=== PATIENT | female | born 1950 | race Caucasian/White ===

== ENCOUNTER 2024-02-27 02:52 | Observation (INO) | payer MEDICARE, SELFPAY ==
[2024-02-27] VITALS (7 sets, daily range): BP systolic 99–136; BP diastolic 64–79; PULSE 74–97; RESP 16–20; TEMP 36.1–36.8; O2SAT 94–97; BMI 25.8; BMI 25.9
--- NOTE | 2024-02-27 03:51 | CRLHL7_ITS ---
For Patients: As a result of the Century Cures Act, medical imaging exams and procedure reports are released immediately into your electronic medical record. You may view this report before your referring provider. If you have questions, please contact your health care provider. INDICATION: Abdominal pain for 1 month. COMPARISON: None. TECHNIQUE: CT of the abdomen and pelvis with intravenous contrast. Multiplanar axial, coronal, and sagittal reformats were reconstructed. Contrast: 76 mL Isovue 370. FINDINGS: Lung bases: Normal. Liver: Normal. No mass. Gallbladder and bile ducts: Cholecystectomy. Moderate intrahepatic biliary ductal dilatation extending out to the periphery. Mild right-sided intrahepatic biliary ductal dilatation. The extrahepatic bile duct is diffusely dilated. The common bile duct measures 1.3 cm. The distal common bile duct measures 0.5 cm. There loss of the normal tapering down towards the ampulla. No discrete filling defect or obstructing mass is identified on this exam. Pancreas: Normal pancreatic parenchyma. The pancreatic duct is not dilated. Spleen: Normal. Adrenal glands: Normal. Kidneys: Normal parenchyma. No cyst or solid mass. No calculi. No urinary tract dilation. Urinary bladder: Normal. Pelvis: No cyst or mass. Vessels: Atherosclerotic vascular calcifications. No aortic aneurysm. Mesenteric vessels are widely patent. Bowel: Focally inflamed diverticulum in the proximal sigmoid colon in the anterior left lower quadrant/pelvis. Adjacent inflammatory stranding. No phlegmon or abscess. No focal or free air. No other dilated or inflamed appearing bowel. Overall the diverticular burden is heavy. The appendix is not seen. Moderate stool burden. Lymph nodes: No adenopathy. Peritoneum: No ascites. Abdominal wall: Tiny fat containing right inguinal hernia. Bones: No fractures. No focal worrisome bone lesions. IMPRESSION: 1. Acute uncomplicated sigmoid diverticulitis. 2. Left intrahepatic and extrahepatic biliary ductal dilatation may be related to reservoir effect. No specific further imaging is recommended without signs/symptoms of obstructive biliary pathology Please note that all CT scans at this facility use dose modulation, iterative reconstruction, and/or weight-based dosing when appropriate to reduce radiation dose to as low as reasonably achievable. Dictated by Jerica Power MD @ 02/27/2024 5:05:07 AM (Electronically Signed)
[2024-02-27 03:52] LABS: Basophils Absolute Auto 0.01 K/uL (0.00-0.30); Basophils Percent Auto 0.1 % (0.0-3.0); Eosinophils Absolute Auto 0.02 K/uL (0.00-0.50); Eosinophils Percent Auto 0.2 % (0.0-7.0); Hemoglobin* 12.8 gm/dL (12.0-16.0); Immature Granulocytes Abs Auto 0.01 K/uL (0.00-0.30); Immature Granulocytes Pct Auto 0.1 %; Lymphocytes Percent Auto 13.5 % (20-44); Mean Corpuscular HGB Conc 33 gm/dL (32-36); Mean Corpuscular Hemoglobin 31 pg (26-34); Mean Corpuscular Volume 94 fL (80-100); Monocytes Percent Auto 9.8 % (0.0-11.0); Neutrophils Percent Auto 76.3 % (42.0-72.0); Platelet Count* 567 K/uL (140-440); RDW Coefficient of Variation % 12.7 % (11.5-15.5); Red Blood Count 4.17 m/uL (4.00-5.20); White Blood Count* 9.88 K/uL (4.50-11.00)
--- NOTE | 2024-02-27 03:53 | ED_ITS ---
HPI - Abdominal Pain General Date Seen: 02/27/24 Chief Complaint: Abdominal Pain Stated Complaint: stomach pain Time Seen by Provider: 02/27/24 02:56 Source: patient and family Mode of arrival: ambulatory Limitations: no limitations History of Present Illness HPI narrative: Patient is a 73-year-old female who comes in with lower abdominal pain for the past two weeks. This has gotten much worse over the past 48 hours. The left side is worse than the right. She has a history of diverticulitis and this feels similar. No fevers or chills. Eating makes the pain worse. She denies diarrhea or constipation. No black or bloody stools. No weight loss. She has had previous appendectomy and cholecystectomy. She does not have a local doctor and does not have any chronic medical conditions. She does not take any medications. She comes in at 3:00 a.m. because pain was keeping her from sleeping. Related Data Home Medications ?Medication ?Instructions ?Recorded ?Confirmed No Known Home Medications 02/27/24 02/27/24 Allergies Allergy/AdvReac Type Severity Reaction Status Date / Time No Known Drug Allergies Allergy Verified 02/27/24 03:04 Review of Systems Narrative Review of systems is as outlined above otherwise noted to be negative. [facility] Surgical History (Updated 02/27/24 @ 04:02 by Boston Olivo MD) History of appendectomy ?Z90.49 - Acquired absence of other specified parts of digestive tract (ICD- 10) History of cholecystectomy ?Z90.49 - Acquired absence of other specified parts of digestive tract (ICD- 10) Social History (Updated 02/27/24 @ 04:02 by Boston Olivo MD) Narrative: , retired, nonsmoker How often do you have a drink containing alcohol: never AUDIT-C Alcohol total score: 0 Non-prescribed substance use: denies use Exam Narrative: Exam Narrative: Vitals noted. HEENT: Conjunctiva clear. Tympanic membranes are pearly white bilaterally. Posterior pharynx is clear without erythema or exudate. Neck is supple without adenopathy, thyromegaly, carotid bruit. Lungs: Clear to auscultation in all velazquez. No wheezes, rales, rhonchi. Heart: Regular rate and rhythm without murmur. Abdomen: Soft with diffuse tenderness. This is worst in the left lower quadrant. No guarding or rebound. No palpable masses. Bowel sounds are normal. No CVA tenderness. Extremities: No cyanosis or edema. Good distal pulses. Skin: No abnormalities noted of the exposed skin. Neurologic: Awake, alert, fully oriented. Neurologic exam is nonfocal. Const: Vital Signs, click to edit/add: Vital Signs - 24 hr 02/27/24 03:04 02/27/24 07:24 Temperature 97.1 F L Pulse Rate [Pulse Oximeter] 97 75 Respiratory Rate 20 16 Blood Pressure [Ri ght Upper Arm] 99/66 122/67 Pulse Oximetry 94 96 Oxygen Delivery Me thod Room Air Room Air Course Course ED Course: Patient seen and examined. Labs and CT of her abdomen and pelvis with IV contrast are ordered. Reevaluation(s) Reevaluation #1: CBC is unremarkable. Basic metabolic panel is also essentially normal. Liver function tests are abnormal with a total bilirubin of 2.5 and direct of 1.5. Alk-phos is 198. AST weight is 1007, ALT is 522. Lipase is 17,048. Patient confirms that she does not drink any alcohol. She has never been told she has hyperlipidemia. She takes no prescription medications. She has had a previous cholecystectomy. Her CT scan shows simple uncomplicated diverticulitis with no sign of liver or pancreas disease. Because her imaging and her clinical scenario did not seem to manage with her tremendously elevated labs I chose to repeat her AST, ALT, lipase. Reevaluation #2: Follow-up AST has risen to 1215, ALT 714. Lipase is 26,530. She is given a L of normal saline. She continues to have abdominal pain but has not gotten any worse. I discussed the case with Dr. Matthew. A CPK, troponin, blood culture will be added. She is given Flagyl 500 mg IV and Rocephin 1 g IV. EKG shows normal sinus rhythm with a rate of 74. No acute ST or T-wave changes. He agrees to admit the patient to the hospital. Vital Signs Vital signs: Initial Vital Signs Temperature 97.1 F L 02/27/24 03:04 Temperature Source Temporal Artery Scan 02/27/24 03:04 Pulse Rate 97 02/27/24 03:04 Pulse Rhythm Regular 02/27/24 03:04 Pulse Strength 3+ Normal 02/27/24 03:04 Respiratory Rate 20 02/27/24 03:04 Blood Pressure 99/66 02/27/24 03:04 Blood Pressure Mean 77 02/27/24 03:04 Blood Pressure Position Sitting 02/27/24 03:04 Pulse Oximetry 94 02/27/24 03:04 Oxygen Delivery Method Room Air 02/27/24 03:04 Vital Signs Temperature 97.1 F L 02/27/24 03:04 Pulse Rate 97 02/27/24 03:04 Respiratory Rate 20 02/27/24 03:04 Blood Pressure 99/66 02/27/24 03:04 Pulse Oximetry 94 02/27/24 03:04 Oxygen Delivery Method Room Air 02/27/24 03:04 Temperature 97.1 F L 02/27/24 03:04 Pulse Rate 75 02/27/24 07:24 Respiratory Rate 16 02/27/24 07:24 Blood Pressure 122/67 02/27/24 07:24 Pulse Oximetry 96 02/27/24 07:24 Oxygen Delivery Method Room Air 02/27/24 07:24 Medications Administered Medications: Discontinued Medications Generic Name Dose Route Start Last Admin Trade Name Freq PRN Reason Stop Dose Admin Sodium Chloride 1,000 mls @ 1,000 mls/hr 02/27/24 06:09 02/27/24 06:28 0.9 % Sodium Chloride 1000 Ml IV 02/27/24 07:08 1,000 mls/hr .Q1H UMA Administration MDM - Abdominal Pain Lab Data Labs: Lab Results 02/27/24 02/27/24 02/27/24 Range/Units 03:25 03:30 05:18 WBC 9.88 (4.50-11.00) K/uL RBC 4.17 (4.00-5.20) m/uL Hgb 12.8 (12.0-16.0) gm/dL Hct 39.0 (33.0-51.0) % MCV 94 (80-100) fL MCH 31 (26-34) pg MCHC 33 (32-36) gm/dL RDW Coeff of Jimmie 12.7 (11.5-15.5) % Plt Count 567 H (140-440) K/uL Neut % (Auto) 76.3 H (42.0-72.0) % Lymph % (Auto) 13.5 L (20-44) % Nicollet % (Auto) 9.8 (0.0-11.0) % Eos % (Auto) 0.2 (0.0-7.0) % Baso % (Auto) 0.1 (0.0-3.0) % Neut # (Auto) 7.50 H (1.7-7.0) K/uL Lymph # (Auto) 1.30 (0.90-2.90) K/uL Nicollet # (Auto) 1.00 H (0.00-0.90) K/UL Eos # (Auto) 0.02 (0.00-0.50) K/uL Baso # (Auto) 0.01 (0.00-0.30) K/uL Abs Immat Gran (auto) 0.01 (0.00-0.30) K/uL Imm/Tot Granulo (auto) 0.1 % Sodium Cancelled 134 L Potassium Cancelled 3.7 Chloride Cancelled 102 Carbon Dioxide Cancelled 26 Anion Gap Cancelled 6 L BUN Cancelled 15 Creatinine Cancelled 0.8 Estimated Creat Clear Cancelled 46.43 Estimated GFR Cancelled 79 Glucose Cancelled 138 H Calcium Cancelled 9.3 Total Bilirubin Cancelled 2.5 H Direct Bilirubin 1.5 H (0.0-0.5) mg/dL AST Cancelled 1007 H 1215 H ALT Cancelled 522 H 714 H Alkaline Phosphatase Cancelled 198 H Total Protein Cancelled 7.5 Albumin Cancelled 4.2 Lipase 66290 H 94281 H (23-300) U/L Lab Acknowledgement 02/27/24 Range/Units 07:19 WBC (4.50-11.00) K/uL RBC (4.00-5.20) m/uL Hgb (12.0-16.0) gm/dL Hct (33.0-51.0) % MCV (80-100) fL MCH (26-34) pg MCHC (32-36) gm/dL RDW Coeff of Jimmie (11.5-15.5) % Plt Count (140-440) K/uL Neut % (Auto) (42.0-72.0) % Lymph % (Auto) (20-44) % Nicollet % (Auto) (0.0-11.0) % Eos % (Auto) (0.0-7.0) % Baso % (Auto) (0.0-3.0) % Neut # (Auto) (1.7-7.0) K/uL Lymph # (Auto) (0.90-2.90) K/uL Nicollet # (Auto) (0.00-0.90) K/UL Eos # (Auto) (0.00-0.50) K/uL Baso # (Auto) (0.00-0.30) K/uL Abs Immat Gran (auto) (0.00-0.30) K/uL Imm/Tot Granulo (auto) % Sodium Potassium Chloride Carbon Dioxide Anion Gap BUN Creatinine Estimated Creat Clear Estimated GFR Glucose Calcium Total Bilirubin Direct Bilirubin (0.0-0.5) mg/dL AST ALT Alkaline Phosphatase Total Protein Albumin Lipase (23-300) U/L Lab Acknowledgement Test Added Discharge Plan Discharge Clinical Impression: Diverticulitis, Elevated liver function tests, Elevated lipase Patient Disposition: Admitted As Inpatient Condition: Stable
[2024-02-27 03:54] LABS: Slide Review Reflex No
[2024-02-27 04:04] LABS: Albumin* 4.2 g/dL (3.3-5.0); Chloride* 102 mmol/L (96-114); Sodium* 134 mmol/L (135-149)
[2024-02-27 04:05] LABS: Potassium* 3.7 mmol/L (3.6-5.1)
[2024-02-27 04:07] LABS: Alkaline Phosphatase* 198 U/L (40-150); Anion Gap 6 mEq/L (7-15); Bilirubin Direct* 1.5 mg/dL (0.0-0.5); Bilirubin Total* 2.5 mg/dL (0.1-1.5); Blood Urea Nitrogen* 15 mg/dL (7-30); Calcium* 9.3 mg/dL (8.4-10.6); Carbon Dioxide* 26 mmol/L (20-32); Creatinine* 0.8 mg/dL (0.5-1.5); Est. Creatinine Clearance* 46.43; Estimated Glomerular Filt Rate 79 ml/min; Glucose* 138 mg/dL (60-115); Total Protein* 7.5 g/dL (6.0-8.3)
[2024-02-27 04:08] LABS: Alanine Aminotransferase* 522 U/L (4-35)
[2024-02-27 04:14] LABS: Aspartate Amino Transferase* 1007 U/L (12-35)
[2024-02-27 04:34] LABS: Lipase* 17048 U/L (23-300)
[2024-02-27 05:40] LABS: Alanine Aminotransferase* 714 U/L (4-35)
[2024-02-27 05:47] LABS: Aspartate Amino Transferase* 1215 U/L (12-35)
[2024-02-27] MEDS: 0.9 % SODIUM CHLORIDE 1000 ml 1,000 ML IV (06:28)
[2024-02-27 06:30] LABS: Lipase* 26530 U/L (23-300)
[2024-02-27] MEDS: cefTRIAXone 1 GM in 0.9 % SODIUM CHLORIDE Mini-bag 100 ML IVPB (07:40)
[2024-02-27 07:48] LABS: Creatine Kinase* 40 U/L (41-117)
[2024-02-27 08:07] LABS: Troponin I* < 0.01 ng/mL (0.01-0.04)
[2024-02-27] MEDS: metroNIDAZOLE 500 MG/100 ML PIGGYBACK 100 MG IVPB ×2 (08:10→16:08)
--- NOTE | 2024-02-27 08:26 | CRLHL7_ITS ---
For Patients: As a result of the Century Cures Act, medical imaging exams and procedure reports are released immediately into your electronic medical record. You may view this report before your referring provider. If you have questions, please contact your health care provider. INDICATION: Evaluate pancreas, question Budd-Chiari TECHNIQUE: Ultrasound abdomen limited. Sonographic images of the right upper quadrant were obtained using marie-scale and color Doppler images. Doppler images of the hepatic vasculature were obtained. COMPARISON: CT abdomen pelvis 02/27/2024 FINDINGS: Liver: Normal in size and echotexture. No suspicious masses. Mild intrahepatic biliary ductal dilation. Hepatic vasculature: Patent portal veins with hepatopetal flow. Pulsatile flow in the left portal vein. Hepatic veins are patent. Proper hepatic artery with normal waveform and peak systolic velocity of 21.5 centimeters/second. Gallbladder: Absent. Common bile duct: Dilated common bile duct measuring up to 1.3 centimeters at the level of the pancreatic head, without evidence of choledocholithiasis. Pancreas: Pancreatic tail is poorly visualized due to bowel-gas. Remainder the pancreas is unremarkable. Spleen: Antegrade flow in the splenic vein. Right kidney: Normal in size. Normal echotexture and cortex. No suspicious masses, stones, or hydronephrosis. Vasculature: Proximal abdominal aorta and IVC are unremarkable. IMPRESSION: Normal appearance of the visualized pancreas. Dilated common bile duct measuring up to 1.3 centimeters without evidence of choledocholithiasis. This may be related to reservoir effect from cholecystectomy. However, with the presence of elevated LFTs, further evaluation with MRCP can be considered. Normal appearance of the liver. There is mildly pulsatile flow in the left portal vein, which is nonspecific, and is likely a normal variant considering normal waveforms in the remainder of the portal veins. Remainder of the hepatic vasculature evaluation is unremarkable. Dictated by Tess Hinojosa MD @ 02/28/2024 8:44:52 AM (Electronically Signed)
--- NOTE | 2024-02-27 08:26 | CRLHL7_ITS ---
For Patients: As a result of the Cures Act, medical imaging exams and procedure reports are released immediately into your electronic medical record. You may view this report before your referring provider. If you have questions, please contact your health care provider. Indication: Cough, smoker, lipase 27,000 Technique: Volumetric multidetector CT images of the chest were obtained without the administration of IV contrast. Comparison: None available. Findings: The thoracic inlet and thyroid gland are unremarkable. The thoracic aorta is nonaneurysmal. There is no mediastinal, hilar or axillary adenopathy. There are calcified mediastinal and hilar lymph nodes. There is mild bronchial thickening with trace mucoid impaction of lower lobe bronchi. There is mild pleural thickening with basilar atelectasis and parenchymal scar. There is minimal emphysematous changes of the upper greater than lower lobes. There is no dense consolidation, effusion or pneumothorax. There is no evidence of pulmonary mass or suspicious pulmonary nodule. The partially visualized upper abdominal viscera are within normal limits. The thoracic vertebral body heights are grossly maintained with minimal endplate Schmorl`s defects. There is moderate degenerative disc disease. There is no significant spondylolisthesis or displaced fracture. Impression: Moderate emphysematous changes of the upper lobes with mild central bronchial thickening and trace mucoid impaction of lower lobe bronchi. No dense consolidation or acute cardiopulmonary abnormality. Please note that all CT scans at this facility use dose modulation, iterative reconstruction, and/or weight-based dosing when appropriate to reduce radiation dose to as low as reasonably achievable. Dictated by Ajith Condon MD @ 02/27/2024 9:05:12 AM (Electronically Signed)
[2024-02-27 08:50] LABS: Gamma Glutamyl Transpeptidase* 210 U/L (8-55)
[2024-02-27 09:03] LABS: HCO3 VBG 26 mmol/L (21-28); Lactate* 0.5 mmol/L (0.5-1.9); PCO2 VBG 42 mmHG (40-50); PO2 VBG 36.2 mmHG (25-47)
[2024-02-27] MEDS: 0.9 % SODIUM CHLORIDE 1000 ml 1,000 ML 75 ML IV (10:05)
--- NOTE | 2024-02-27 11:58 | PM.IMHP1 ---
Hospitalist- H&P: HPI History of Present Illness Date Seen: 02/27/24 Chief complaint: stomach pain Narrative: Marbella Diallo is a 73 year old Woman presents to our emergency department for further assessment of worsening abdominal pain. Has had intermittent left lower quadrant abdominal discomfort for the past couple of weeks. Discomfort has increased over the last 48 hours. At times the pain seems to shoot into the right side of the abdomen as well. Feels like diverticulitis that she has had in the past. Denies fevers, rigors, diaphoresis. At times it seems like eating makes the pain worse , particularly lately. Although she does have constipation off and on, has not had diarrhea or constipation recently. Has not had any blood loss of any sort including no hematemesis, hematochezia, melena, hematuria. Denies hemoptysis. Denies recent trauma or injury or travel. Denies nausea or vomiting. She denies chest heaviness, pressure, tightness, or pain. She denies syncope or near-syncope. She denies palpitations or chest fluttering. She denies edema. Review of Systems Status of ROS: Reports: 10 or more systems reviewed and unremarkable except as noted in History and below Narrative: Chronic cough, nonproductive. Acknowledges a sense of dyspnea on exertion which has been evolving over the last several years. Continues to smoke tobacco daily, 1/2 pack per day. Has been smoking for over 50 years. Denies the use of alcohol or any other prescription or street or recreational drugs. Tells me she has not seen a physician for literally decades since her primary care physician, Dr. Titus, retired a number of years ago. She believes Dr. Titus worked with [facility]. Dr. Titus delivered her children. Lives with her , Francisco. Designates Francisco as her power of tax attorney for health should that be required. Unequivocally requests DNR DNI resuscitation status in the event of cardiopulmonary demise. Denies taking any [id number] medications including acetaminophen and ibuprofen. [facility] Medical History Tobacco use disorder ?F17.200 - Nicotine dependence, unspecified, uncomplicated (ICD-10) History of lipoma ?Z86.018 - Personal history of other benign neoplasm (ICD-10) Surgical History History of section ?Z98.891 - History of uterine scar from previous surgery (ICD-10) History of appendectomy ?Z90.49 - Acquired absence of other specified parts of digestive tract (ICD-10) History of cholecystectomy ?Z90.49 - Acquired absence of other specified parts of digestive tract (ICD-10) Family History Father Alcohol dependence Pancreatic cancer Mother Lung cancer Social History Narrative: , lives with , retired, life-long smoker What is your current living situation?: I presently have a place to live Problems where you live: no known problems Problems where you live details: NA In the past 12 months, utilities in danger of being shut off: no In past 12 months, lack of transportation kept you from medical appts, meetings, work, or getting things needed for daily living: no In the past 12 mos, have been you worried that your food would run out before you had money to buy more?: never true In the past 12 mos, the food you bought just didn't last and you didn't have money to buy more?: never true Smoking Status: Current every day smoker What tobacco products do you use: cigarettes Smoking packs per day: 0.5 Smoking cigarettes per day: 10.0 Years smoked: 25 Smoking pack-years: 12.50 How often do you have a drink containing alcohol: never AUDIT-C Alcohol total score: 0 Non-prescribed substance use: denies use How often does anyone, including family, friends and others, physically hurt you: never How often does anyone, including family, friends and others, insult or talk down to you: never How often does anyone, including family, friends and others, threaten you with harm: never How often does anyone, including family, friends and others, scream or curse at you: never service: No Meds Home Medications and Allergies Home Medications ?Medication ?Instructions ?Recorded ?Confirmed ?Type No Known Home Medications 02/27/24 02/27/24 History Allergies Allergy/AdvReac Type Severity Reaction Status Date / Time No Known Drug Allergies Allergy Verified 02/27/24 03:04 Exam Narrative: Exam Narrative: I initially examined the patient in the emergency department. Subsequently I reexamined the patient in her hospital room. Appears comfortable no acute distress. Vision and hearing are adequate. Alert and oriented x4. Friendly and cooperative. External auditory canal and tympanic membranes appear normal with minimal cerumen. Midline nasal septum with normal nasal mucosa. Upper dentures with lower dentition in fair repair. Oropharynx benign. Conjugate gaze. Pupils equally round and reactive to light and accommodation. Head and neck lymphadenopathy is negative. Neck is supple. Midline trachea. No JVD or hepatojugular reflux. Lungs with some fine end inspiratory rales bibasilarly, scattered rhonchi that clear with cough, no wheezing. Prolonged expiratory phase. No CVA tenderness to thumping. Regular heart rate and rhythm. Normal S1-S2. PMI not laterally displaced. Abdomen with active bowel sounds, soft, with subjective discomfort to palpation in left lower quadrant otherwise abdomen is benign. No rebound or guarding. No organomegaly or masses. Extremities without edema. Palpable pulses upper and lower extremities. No focal motor neurologic deficits. Independent in transfer, station, and gait. Skin is dry and intact. No icterus or jaundice. No petechiae or rashes. In addition to the labs listed below, initial lipase was 17,000 and subsequent recheck was 26,000. Const: Vital Signs, click to edit/add: Vital Signs - 24 hr 02/27/24 03:04 02/27/24 07:24 02/27/24 09:29 Temperature 97.1 F L 97 F L Pulse Rate [Pulse Oximeter] 97 75 74 Respiratory Rate 20 16 16 Blood Pressure [Ri ght Arm] 127/79 Blood Pressure [Ri ght Upper Arm] 99/66 122/67 Pulse Oximetry 94 96 97 Oxygen Delivery Me thod Room Air Room Air Room Air 02/27/24 09:29 02/27/24 11:41 Temperature 97.6 F Pulse Rate [Pulse Oximeter] 75 Respiratory Rate 16 16 Blood Pressure [Ri ght Arm] 127/64 Blood Pressure [Ri ght Upper Arm] Pulse Oximetry 97 94 Oxygen Delivery Me thod Room Air Room Air Hospitalist - H&P: Result Labs Labs: Short CBC 02/27/24 Range/Units 03:25 WBC 9.88 (4.50-11.00) K/uL Hgb 12.8 (12.0-16.0) gm/dL Hct 39.0 (33.0-51.0) % Plt Count 567 H (140-440) K/uL BMP 02/27/24 02/27/24 03:25 03:30 Sodium Cancelled 134 L Potassium Cancelled 3.7 Chloride Cancelled 102 Carbon Dioxide Cancelled 26 BUN Cancelled 15 Creatinine Cancelled 0.8 Glucose Cancelled 138 H Calcium Cancelled 9.3 Cardiac Enzymes 02/27/24 Range/Units 05:18 Total Creatine Kinase 40 L (41-117) U/L Troponin I < 0.01 L (0.01-0.04) ng/mL Liver Function 02/27/24 02/27/24 02/27/24 Range/Units 03:25 03:30 05:18 Total Bilirubin Cancelled 2.5 H Direct Bilirubin 1.5 H (0.0-0.5) mg/dL GGT 210 H (8-55) U/L AST Cancelled 1007 H 1215 H ALT Cancelled 522 H 714 H Alkaline Phosphatase Cancelled 198 H Albumin Cancelled 4.2 ECG ECG interpretation date: 02/27/24 Interpretation: Normal sinus rhythm without evidence of infarct or ischemia. Low voltage consistent with underlying pulmonary disease. Imaging CT scan - abdomen and pelvis: Radiologist's impression: 1. Acute uncomplicated sigmoid diverticulitis. 2. Left intrahepatic and extrahepatic biliary ductal dilatation may be related to reservoir effect. No specific further imaging is recommended without signs/symptoms of obstructive biliary pathology CT scan - chest: Radiologist's impression: Moderate emphysematous changes of the upper lobes with mild central bronchial thickening and trace mucoid impaction of lower lobe bronchi. No dense consolidation or acute cardiopulmonary abnormality. Assessment and Plan Assessment and plan (1) Diverticulitis: Problem comment: - admit for observation given incongruity of laboratory findings, imaging tests, and clinical presentation - IV ceftriaxone and metronidazole for now - NPO for now and obtain ultrasound to further assess pancreas as well as Doppler study to further assess for possibility of a Budd-Chiari syndrome - IV fluids while NPO Status: Acute (2) Elevated liver function tests: Problem comment: - 02/27/2024: AST elevated at 1000 and later repeat value of 1200. ALT elevated at 500, repeat value at 700. - etiology of this transaminasemia not yet determined: Differential diagnosis include acute viral hepatitis, other viral infection, acetaminophen toxicity, Budd-Chiari syndrome, malignant infiltrative process such as breast cancer or squamous cell lung cancer or melanoma or lymphoma, underlying muscle disorder, underlying thyroid disorder, etc. - check ultrasound with Doppler studies for possible Budd-Chiari syndrome, CT scan of chest, GGT, CK, troponin I, TSH, acute viral hepatitis serologies, and consider additional studies as warranted. - monitor Status: Acute (3) Elevated lipase: Problem comment: - 02/27/2024: Lipase 17,000 on presentation and later recheck to and found to be 26,000. Etiology of this uncertain. CT scan of abdomen and pelvis demonstrates normal appearing pancreas. Differential diagnosis include pancreatic disease, non pancreatic disease including the possibility of the acute diverticulitis in part causing this abnormality. - monitor. Check abdominal ultrasound. Status: Acute (4) Tobacco use disorder: Problem comment: - 1/2 PPD for over 50 years Status: Acute (5) Emphysema lung: Problem comment: - CT scan of chest 02/27/2024: Moderate emphysematous changes of the upper lobes with mild central bronchial thickening and trace mucoid impaction of lower lobe bronchi. No dense consolidation or acute cardiopulmonary abnormality. - not taking any medication for this Status: Acute Plan 1. Reviewed impression with patient 2. Reviewed recommendations with patient 3. Answered patient's questions are satisfaction. 4. Declines smoking cessation 5. Agrees to above plans and recommendations Total Time Spent Total Time Spent: 70 minutes
[2024-02-27 12:31] LABS: Albumin* 3.8 g/dL (3.3-5.0)
[2024-02-27 12:34] LABS: Alkaline Phosphatase* 214 U/L (40-150); Bilirubin Direct* 0.5 mg/dL (0.0-0.5); Bilirubin Total* 1.2 mg/dL (0.1-1.5); Total Protein* 6.8 g/dL (6.0-8.3)
[2024-02-27 12:48] LABS: Aspartate Amino Transferase* 927 U/L (12-35)
[2024-02-27 13:01] LABS: Alanine Aminotransferase* 841 U/L (4-35); Lipase* 5195 U/L (23-300)
[2024-02-27 13:52] LABS: Acetaminophen* < 10.0 ug/mL (10.0-30.0)
--- NOTE | 2024-02-27 14:49 | PC.NURSE ---
End of shift: Pt arrived from the ER at 0825. She is A&O, afebrile and VSS. When asked, pt reports her abd pain is much better than before rating it at 2/10. She's refused any interventions for pain since arriving. Pt has been independent in her room with a steady gait. Continent of B&B, no BM since arrival. PIV in left AC infusing NaCl @ 75 mL/hr. IV Flagyl scheduled q8H and IV Rocephin scheduled q24H. Abd ultrasound completed at bedside this morning, results still pending. Pt is NPO and dissatisfied with diet order, requiring re-education on reasons why she needs the bowel rest.
--- NOTE | 2024-02-27 19:16 | PC.NURSE ---
End of Shift Note: Patient has not complain of any pain. Only states she is hungry. explain to her that she is npo and needs to rest her bowel. Did give her a 1/2 cup of ice chips. Otherwise have only taken care of her for 4 hours. will give report to next shift.
[2024-02-28] MEDS: 0.9 % SODIUM CHLORIDE 1000 ml 1,000 ML 75 ML IV (00:05)
[2024-02-28] MEDS: metroNIDAZOLE 500 MG/100 ML PIGGYBACK 100 MG IVPB ×2 (00:05→08:17)
[2024-02-28 04:20] VITALS: BP 122/66; PULSE 89; RESP 18; TEMP 37; O2SAT 93
--- NOTE | 2024-02-28 04:31 | PC.NURSE ---
Shift note: Lower abdominal pain 2-3/10 reported only with cough or sneezing, no pain at rest or while walking. No c/o nausea, bowel sounds hypoactive. She is voiding, is independent in the room
[2024-02-28 06:14] LABS: Basophils Absolute Auto 0.01 K/uL (0.00-0.30); Basophils Percent Auto 0.1 % (0.0-3.0); Eosinophils Absolute Auto 0.04 K/uL (0.00-0.50); Eosinophils Percent Auto 0.5 % (0.0-7.0); Hemoglobin* 11.4 gm/dL (12.0-16.0); Lymphocytes Absolute Auto 1.77 K/uL (0.90-2.90); Lymphocytes Percent Auto 21.1 % (20-44); Mean Corpuscular HGB Conc 33 gm/dL (32-36); Mean Corpuscular Hemoglobin 31 pg (26-34); Mean Corpuscular Volume 95 fL (80-100); Monocytes Percent Auto 8.4 % (0.0-11.0); Neutrophils Absolute Auto 5.86 K/uL (1.7-7.0); Neutrophils Percent Auto 69.9 % (42.0-72.0); Platelet Count* 505 K/uL (140-440); RDW Coefficient of Variation % 12.7 % (11.5-15.5); Red Blood Count 3.68 m/uL (4.00-5.20); White Blood Count* 8.38 K/uL (4.50-11.00)
[2024-02-28 06:42] LABS: Slide Review Reflex No
[2024-02-28 06:47] LABS: Chloride* 108 mmol/L (96-114); Potassium* 3.7 mmol/L (3.6-5.1); Sodium* 136 mmol/L (135-149)
[2024-02-28 06:49] LABS: Creatinine* 0.7 mg/dL (0.5-1.5); Est. Creatinine Clearance* 46.43; Estimated Glomerular Filt Rate 92 ml/min; Lipase* 133 U/L (23-300)
[2024-02-28 06:50] LABS: Anion Gap 8 mEq/L (7-15); Blood Urea Nitrogen* 17 mg/dL (7-30); Carbon Dioxide* 20 mmol/L (20-32); Gamma Glutamyl Transpeptidase* 186 U/L (8-55); Glucose* 68 mg/dL (60-115)
[2024-02-28 06:51] LABS: Calcium* 8.6 mg/dL (8.4-10.6)
[2024-02-28 07:00] VITALS: BP 123/65; PULSE 88; RESP 18; TEMP 35.9; O2SAT 93
[2024-02-28 09:13] LABS: Alanine Aminotransferase* 524 U/L (4-35); Albumin* 3.5 g/dL (3.3-5.0); Alkaline Phosphatase* 193 U/L (40-150); Aspartate Amino Transferase* 316 U/L (12-35); Bilirubin Direct* 0.3 mg/dL (0.0-0.5); Bilirubin Total* 0.7 mg/dL (0.1-1.5); Total Protein* 6.5 g/dL (6.0-8.3)
[2024-02-28] MEDS: cefTRIAXone 2 GM in 0.9 % SODIUM CHLORIDE Mini-bag 100 ML IVPB (09:29)
[2024-02-28] MEDS: SODIUM CHLORIDE 0.9 % (FLUSH) 10 ML SYRINGE 5 ML IVF (09:50)
--- NOTE | 2024-02-28 12:50 | PC.NURSE ---
PT VSS. A&O. Tolerated a regular diet well. IV removed and intact. Amb. Ind. Pt discharged at 1220 via ambulation, accompanied by spouse. RN provided discharge instructions to patient. Discharge instructions signed by patient.
--- NOTE | 2024-02-28 16:36 | P.DS_ITS ---
DS: Providers Provider Date Seen: 02/28/24 Date of admission: 02/27/24 08:20 Primary care physician: Not a Local Provider Admitting Clinician: Emir Luque MD Attending Physician on discharge: Emir Luque MD Date of Discharge: 02/28/24 DS: Diagnosis Discharge Diagnosis (1) Diverticulitis: Status: Acute Problem details: - admit for observation given incongruity of laboratory findings, imaging tests, and clinical presentation - IV ceftriaxone and metronidazole while in hospital changed to Augmentin at time of discharge - CT scan of abdomen and pelvis on presentation demonstrated uncomplicated diverticulitis of the sigmoid colon with normal-appearing pancreas - ultrasound of the abdomen demonstrated normal appearing pancreas with no e vidence of Budd-Chiari syndrome - left lower quadrant abdominal pain much improved at time of discharge. Tolerating oral intake. Tolerating increased activity. (2) Elevated liver function tests: Status: Acute Problem details: - 02/27/2024: AST elevated at 1000 and later repeat value of 1200. ALT el evated at 500, repeat value at 700. - etiology of this transaminasemia not yet determined: Differential diagnosis include acute viral hepatitis, other viral infection, acetaminophen toxicity, Budd-Chiari syndrome, malignant infiltrative process such as breast cancer or squamous cell lung cancer or melanoma or lymphoma, underlying muscle disorder, underlying thyroid disorder, etc. - CT scan of abdomen and pelvis on presentation demonstrated uncomplicated diverticulitis of the sigmoid colon with normal-appearing pancreas - ultrasound of the abdomen demonstrated normal appearing pancreas with no evidence of Budd-Chiari syndrome - 02/28/2024: AST down to 316, ALT down to 524, alk phosphatase down to 193, normal total bilirubin and direct bilirubin. These findings suggest the acute diverticulitis most likely the cause of this rise and then subsequent resolution as we initiated treatment for the diverticulitis. Will need follow-up. (3) Elevated lipase: Status: Acute Problem details: - 02/27/2024: Lipase 17,000 on presentation and later recheck to and found to be 26,000. Etiology of this uncertain. CT scan of abdomen and pelvis demonstrates normal appearing pancreas. Differential diagnosis include pancreatic disease, non pancreatic disease including the possibility of the acute diverticulitis in part causing this abnormality. - CT scan of abdomen and pelvis on presentation demonstrated uncomplicated diverticulitis of the sigmoid colon with normal-appearing pancreas - ultrasound of the abdomen demonstrated normal appearing pancreas with no evidence of Budd-Chiari syndrome - 02/28/2024: Lipase down to 133. (4) Emphysema lung: Status: Acute Problem details: - CT scan of chest 02/27/2024: Moderate emphysematous changes of the upper lobes with mild central bronchial thickening and trace mucoid impaction of lower lobe bronchi. No dense consolidation or acute cardiopulmonary abnormality. - not taking any medication for this - advised on tobacco cessation and follow-up with primary care physician. (5) Tobacco use disorder: Status: Acute Problem details: - 1/2 PPD for over 50 years - advised on tobacco cessation. DS: Summary Hospital Course Hospital Course: Admission history of present illness: ?Marbella Diallo is a 73 year old Woman presents to our emergency department for further assessment of worsening abdominal pain. Has had intermittent left lower quadrant abdominal discomfort for the past couple of weeks. Discomfort has increased over the last 48 hours. At times the pain seems to shoot into the right side of the abdomen as well. Feels like diverticulitis that she has had in the past. Denies fevers, rigors, diaphoresis. At times it seems like eating makes the pain worse , particularly lately. Although she does have constipation off and on, has not had diarrhea or constipation recently. Has not had any blood loss of any sort including no hematemesis, hematochezia, melena, hematuria. Denies hemoptysis. Denies recent trauma or injury or travel. Denies nausea or vomiting. She denies chest heaviness, pressure, tightness, or pain. She denies syncope or near-syncope. She denies palpitations or chest fluttering. She denies edema.? See diagnosis above for patient improvement with interventions and management. Time Spent with Patient Time attestation: Total time spent providing and/or coordinating discharge services: Exam Narrative: Exam Narrative: Appears comfortable no acute distress. Vision and hearing are adequate. Alert and oriented x4. Friendly and cooperative. External auditory canal and tympanic membranes appear normal with minimal cerumen. Midline nasal septum with normal nasal mucosa. Upper dentures with lower dentition in fair repair. Oropharynx benign. Conjugate gaze. Pupils equally round and reactive to light and accommodation. Head and neck lymphadenopathy is negative. Neck is supple. Midline trachea. No JVD or hepatojugular reflux. Lungs with some fine end inspiratory rales bibasilarly, scattered rhonchi that clear with cough, no wheezing. Prolonged expiratory phase. No CVA tenderness to thumping. Regular heart rate and rhythm. Normal S1-S2. PMI not laterally displaced. Abdomen with active bowel sounds, soft, with minimal subjective discomfort to palpation in left lower quadrant otherwise abdomen is benign. No rebound or guarding. No organomegaly or masses. Extremities without edema. Palpable pulses upper and lower extremities. No focal motor neurologic deficits. Independent in transfer, station, and gait. Skin is dry and intact. No icterus or jaundice. No petechiae or rashes. Const: Vital Signs, click to edit/add: Vital Signs - 24 hr 02/27/24 19:00 02/27/24 23:00 02/27/24 23:00 Temperature 98.3 F Pulse Rate [Pulse Oximeter] 90 84 Respiratory Rate 20 20 20 Blood Pressure [Ri ght Arm] 125/67 Pulse Oximetry 95 95 Oxygen Delivery Me thod Room Air Room Air 02/27/24 23:00 02/28/24 04:20 02/28/24 07:00 Temperature 98.6 F Pulse Rate [Pulse Oximeter] 86 89 88 Respiratory Rate 18 18 18 Blood Pressure [Ri ght Arm] 122/66 Pulse Oximetry 94 93 Oxygen Delivery Me thod Room Air Room Air 02/28/24 07:00 02/28/24 07:00 Temperature 96.6 F L Pulse Rate [Pulse Oximeter] 88 Respiratory Rate 18 18 Blood Pressure [Ri ght Arm] 123/65 Pulse Oximetry 93 93 Oxygen Delivery Me thod Room Air Room Air DS: Data Data Completed and Pending Labs on day of discharge: Labs from last 24 hours 02/28/24 02/28/24 07:38 06:02 WBC 8.38 RBC 3.68 L Hgb 11.4 L Hct 35.0 MCV 95 MCH 31 MCHC 33 RDW Coeff of Jimmie 12.7 Plt Count 505 H Neut % (Auto) 69.9 Lymph % (Auto) 21.1 Rogers % (Auto) 8.4 Eos % (Auto) 0.5 Baso % (Auto) 0.1 Neut # (Auto) 5.86 Lymph # (Auto) 1.77 Rogers # (Auto) 0.70 Eos # (Auto) 0.04 Baso # (Auto) 0.01 Abs Immat Gran (auto) 0.00 Imm/Tot Granulo (auto) 0.0 Sodium 136 Potassium 3.7 Chloride 108 Carbon Dioxide 20 Anion Gap 8 BUN 17 Creatinine 0.7 Estimated Creat Clear 46.43 Estimated GFR 92 Glucose 68 Calcium 8.6 Total Bilirubin 0.7 Direct Bilirubin 0.3 GGT 186 H AST 316 H ALT 524 H Alkaline Phosphatase 193 H C-Reactive Protein 8.0 H Total Protein 6.5 Albumin 3.5 Lipase 133 Lab Acknowledgement Test Added Preliminary micro results at discharge 02/27/24 07:39 Blood Culture - Preliminary Blood NO GROWTH AFTER 24 HOURS Imaging US - abdomen: Radiologist's impression: Normal appearance of the visualized pancreas. Dilated common bile duct measuring up to 1.3 centimeters without evidence of choledocholithiasis. This may be related to reservoir effect from cholecystectomy. However, with the presence of elevated LFTs, further evaluation with MRCP can be considered. Normal appearance of the liver. There is mildly pulsatile flow in the left portal vein, which is nonspecific, and is likely a normal variant considering normal waveforms in the remainder of the portal veins. Remainder of the hepatic vasculature evaluation is unremarkable. CT scan - abdomen and pelvis: Attestation: I have reviewed the pertinent imaging results. Radiologist's impression: 1. Acute uncomplicated sigmoid diverticulitis. 2. Left intrahepatic and extrahepatic biliary ductal dilatation may be related to reservoir effect. No specific further imaging is recommended without signs/symptoms of obstructive biliary pathology CT scan - chest: Attestation: I have reviewed the pertinent imaging results. Radiologist's impression: Moderate emphysematous changes of the upper lobes with mild central bronchial thickening and trace mucoid impaction of lower lobe bronchi. No dense consolidation or acute cardiopulmonary abnormality. Discharge Plan Discharge Disposition: Home, Self-Care Date of Admission: 02/27/24 08:20 Attending Provider on Discharge: Emir Luque Primary Care Provider: Provider,Not a Local Condition: Improved Anticipated Discharge Date/Time: 02/28/24 12:30 Discharge Medications: New amoxicillin-pot clavulanate 875-125 mg tablet 1 tab PO BID Qty: 20 0RF acetaminophen 325 mg tablet 650 mg PO QID PRN (Reason: pain) Qty: 100 0RF Discharge Orders: Discharge Order (Routine); Ordered 02/28/24 Ordered By: Emir Luque Patient Education: Acetaminophen (By mouth), Amoxicillin/Clavulanate Potassium (By mouth), How to Stop Smoking (DC), Diverticulitis (DC), Emphysema (DC) Additional Instructions: 1. New patient evaluation and hospital follow-up at [facility] in 2-3 weeks, plus consider and initiate preventive care measures 2. Complete full course of oral antibiotic to eradicate sigmoid colon infection (diverticulitis) 3. Return to clinic or hospital sooner if needed 4. Recommend smoking cessation for short-term and long-term health benefits Activity Level: No Restrictions and Activity as Tolerated Discharge Diet: Regular Follow Up Appointments: Jamie Coronel MD [Staff Physician] - 03/13/24 12:45 pm ([facility] for follow-up.) Provider,Not a Local [Primary Care Provider] - Forms: [employer] Info Instructions
[2024-02-28 19:28] LABS: Hep A Ab, IgM Negative (Negative); Hep B Core Ab, IgM Negative (Negative); Hep B Surface Antigen Negative (Negative); Hep C Ab by CIA Index 0.05 IV; Hep C Ab by CIA Interp Negative (Negative)
== END 2024-02-28 12:20 | disposition home or self-care (01) ==
LOC: ED 07:37 → MEDSURG 08:21
PROVIDERS: Admitting Provider Internal Medicine; Emergency Provider Family Medicine; Visit Provider Internal Medicine
DX: K57.32 Diverticulitis of large intestine without perforation or abscess without bleeding (principal); R10.32 Left lower quadrant pain; R94.5 Abnormal results of liver function studies; R74.8 Abnormal levels of other serum enzymes; R06.00 Dyspnea, unspecified; R79.89 Other specified abnormal findings of blood chemistry; J43.9 Emphysema, unspecified; R05.3 Chronic cough; F17.200 Nicotine dependence, unspecified, uncomplicated; Z90.49 Acquired absence of other specified parts of digestive tract; Z86.018 Personal history of other benign neoplasm; Z98.891 History of uterine scar from previous surgery; Z13.29 Encounter for screening for other suspected endocrine disorder; R14.0 Abdominal distension (gaseous)
CPT/HCPCS: 36415; 71250; 74177; 76705; 80048; 80053; 80074; 80076; 80143; 82550; 82803; 82977; 83605; 83690; 84443; 84450; 84460; 84484; 85025; 86140; 87040; 93005; 93975; 96361; 96365; 96366; 96367; 99284; 99285; G0378; J0696; J1836; J7030; Q9967

== ENCOUNTER 2024-03-14 14:09 | Outpatient (CLI) | payer MEDICARE, SELFPAY | END 2024-03-14 14:10 | disposition home or self-care (01) | LOC: NFLDREF 03-18 07:04 | PROVIDERS: Visit Provider Family Medicine | DX: R79.89 Other specified abnormal findings of blood chemistry (principal); R74.8 Abnormal levels of other serum enzymes | CPT/HCPCS: 80076; 83690 ==

== ENCOUNTER 2025-04-02 00:23 | Emergency (ER) | payer MEDICARE, SELFPAY ==
--- OUTSIDE RECORDS SUMMARY | 2025-04-02 00:26 | XMS_ITS | Clinical Summary ---
Author Organization [facility] Address [address] [place] [id number] Care Team Providers Care Correctional Case Records Supervisor Name Role Phone Pcp, No Primary Care Provider Unavailabl e Allergies No known active allergies Medications cyclobenzaprine (FLEXERIL) 5 mg tabletIndicatio ns:Lumbar strain, initial encounter Take 1-2 tablets by mouth 3 times daily if needed for Muscle Spasm. 30 tablet 0 10/23/2014 Active Active Problems Problem Noted Date Diagnosed Date Preventative health care 10/23/2014 Overview (10/23/2014): Patient declines screening including mammogram, colon cancer screening, or annual exam. States she prefers to avoid doctors and thinks when it's my time to go, it's my time. Family History Medical History Relation Name Comments Cancer Father pancreatic, hx alcoholism Cancer Mother lung to brain c ancer Relation Name Status Comments Father Mother Social History Tobacco Use Types Packs/Day Years Used Date Smoking Tobacco: Every Day Cigarettes Smokeless Tobacco: Never Tobacco Cessation:Ready to Q uit: No; Counseling Given: Yes Alcohol Use Standard Drinks/Week Comments No 0 (1 standard drink = 0.6 oz pur e alcohol) no alcohol for 28 years PHQ-2 Answer Date Recorded PHQ-2 Score 0 07/14/2018 Social Connections Answer Date Recorded Frequency of Communication with Friends and Fami ly Not on file 05/16/2023 Comments No Sex and Gender Information Value Date Recorded Sex Assigned at Not on file Legal Sex Female 6:26 AM [employer] WORK[employer] Gender Identity Not on file Sexual Orientation Not on file Occupation Industry Job Start Date Job End Date Not on file Not on file Not on file Not on file Obstetrics History Para Term AB IAB SAB Ectopic Multiple Livin g Live Births 2 2 2 Date Outcome GA Total Labor Labor/2nd/3rd Weight Sex Type Anes PTL Leidy A1 A5 Name Clin Term Term Last Filed Vital Signs Vital Sign Reading Time Taken Comments Blood Pressure 136/84 06/13/2018 10:54 AM [employer] Pulse 81 06/13/2018 10:54 AM [employer] Temperature 36.3 C (97.4 F) 06/13/2018 10:54 AM [employer] Respiratory Rate - - Oxygen Saturation 97% 06/13/2018 10:54 AM [employer] Inhaled Oxygen Concentration - - Weight 81.6 kg (180 lb) 06/13/2018 10:54 AM [employer] WORK[employer] Height 164.4 cm (5' 4.72) 05/01/2016 10:[address] Body Mass Index 30.21 05/01/2016 10:05 AM [employer] WORK[employer] Plan of Treatment Health Maintenance Due Date Last Done Comments Tetanus booster 1963 Hepatitis C screening for ag e 18-79 1970 Colonoscopy through age 75 1997 Lipids for age 45-75 1997 Mammogram for age 45-75 1997 Pneumococcal series for age 50+ (1 of 1 - PCV) 2002 Zoster (shingles) series for age 50+ (1 of 2) 2002 BMI (ht and wt on same day) for age 18+ 05/01/2017 05/01/2016 DEXA/DXA scan for age 65+ 2017 Depression screening for age 12+ 06/13/2019 06/13/2018, 05/01/2016 Influenza Vaccine (#1) 2025 RSV vaccine for adults or (1 - 1-dose 75+ series) 2027 Hepatitis B series for 19+ Aged Out N o longer eligible based on patient's age to complete this topic Insurance [facility] MEDICARE SUPPLEMENT Care Teams Correctional Case Records Supervisor Relationship Specialty Start Date End Date Pcp, No . PCP - General 05/01/16
[2025-04-02 00:39] VITALS: BP 141/76; PULSE 99; RESP 16; TEMP 36.7; O2SAT 92; BMI 28.8
[2025-04-02 01:21] LABS: Hematocrit* 39.1 % (33.0-51.0); Hemoglobin* 12.8 gm/dL (12.0-16.0); Immature Granulocytes Abs Auto 0.01 K/uL (0.00-0.30); Immature Granulocytes Pct Auto 0.1 %; Mean Corpuscular HGB Conc 33 gm/dL (32-36); Mean Corpuscular Hemoglobin 31 pg (26-34); Mean Corpuscular Volume 95 fL (80-100); RDW Coefficient of Variation % 12.4 % (11.5-15.5); Red Blood Count* 4.12 m/uL (4.00-5.20); White Blood Count* 8.56 K/uL (4.50-11.00)
[2025-04-02 01:23] LABS: Lymphocytes Absolute Auto 1.50 K/uL (0.90-2.90); Slide Review Reflex No
--- NOTE | 2025-04-02 01:27 | ED.ABDPAIN ---
HPI - Abdominal Pain General Date Seen: 04/02/25 Chief Complaint: Abdominal Pain Stated Complaint: abdominal pain Time Seen by Provider: 04/02/25 00:48 Source: patient Mode of arrival: ambulatory Limitations: no limitations History of Present Illness HPI narrative: Patient is a 74-year-old female who is in her usual state of health until after dinner tonight. She began having suprapubic and left lower quadrant abdominal pain. This was present for an hour or two and then seem to resolve. She went to bed around 11:00 p.m. and awoke at midnight with recurrent pain. She has not taken anything for pain. She has history of diverticulitis and this feels similar. No fevers or chills. No nausea or vomiting. Related Data Previous Rx's ?Medication ?Instructions ?Recorded amoxicillin 875 mg-potassium 1 tab PO BID #14 tabs 04/02/25 clavulanate 125 mg tablet Allergies Allergy/AdvReac Type Severity Reaction Status Date / Time No Known Drug Allergies Allergy Verified 04/02/25 00:43 Review of Systems Narrative Review of systems is outlined above otherwise noted to be negative. She takes no chronic medications. Her PCP is Dr. Coronel. She has not seen him in over a year. [facility] Medical History (Updated 04/02/25 @ 02:38 by Boston Olivo MD) Diverticulitis ?K57.92 - Diverticulitis of intestine, part unspecified, without perforation or abscess without bleeding (ICD-10) Elevated liver function tests ?R79.89 - Other specified abnormal findings of blood chemistry (ICD-10) Elevated lipase ?R74.8 - Abnormal levels of other serum enzymes (ICD-10) Emphysema lung ?J43.9 - Emphysema, unspecified (ICD-10) Tobacco use disorder ?F17.200 - Nicotine dependence, unspecified, uncomplicated (ICD-10) Surgical History (Updated 03/12/24 @ 14:28 by Rosalinda Calvin) History of hand surgery ?Z98.890 - Other specified postprocedural states (ICD-10) History of lipoma ?Z86.018 - Personal history of other benign neoplasm (ICD-10) History of phacoemulsification of cataract of both eyes with intraocular lens implantation (2007) ?Z98.41 - Cataract extraction status, right eye (ICD-10) ?Z98.42 - Cataract extraction status, left eye (ICD-10) ?Z96.1 - Presence of intraocular lens (ICD-10) History of section ?Z98.891 - History of uterine scar from previous surgery (ICD-10) History of appendectomy ?Z90.49 - Acquired absence of other specified parts of digestive tract (ICD-10) History of cholecystectomy ?Z90.49 - Acquired absence of other specified parts of digestive tract (ICD-10) Family History Father Alcohol dependence Pancreatic cancer Mother Lung cancer Social History (Updated 03/13/24 @ 13:31 by Josette Bateman~[facility], [facility]) Narrative: , lives with , retired, life-long smoker What is your current living situation?: I presently have a place to live Problems where you live: no known problems Problems where you live details: NA In the past 12 months, utilities in danger of being shut off: no In past 12 months, lack of transportation kept you from medical appts, meetings, work, or getting things needed for daily living: no In the past 12 mos, have been you worried that your food would run out before you had money to buy more?: never true In the past 12 mos, the food you bought just didn't last and you didn't have money to buy more?: never true Smoking Status: Current every day smoker What tobacco products do you use: cigarettes Smoking packs per day: 0.5 Smoking cigarettes per day: 10.0 Years smoked: 25 Smoking pack-years: 12.50 How often do you have a drink containing alcohol: never AUDIT-C Alcohol total score: 0 Non-prescribed substance use: denies use How often does anyone, including family, friends and others, physically hurt you: never How often does anyone, including family, friends and others, insult or talk down to you: never How often does anyone, including family, friends and others, threaten you with harm: never How often does anyone, including family, friends and others, scream or curse at you: never service: No Exam Narrative: Exam Narrative: Vitals noted. HEENT: Conjunctiva clear. Neck is supple without adenopathy. Lungs: Clear to auscultation in all velazquez. No wheezes, rales, rhonchi. Heart: Regular rate and rhythm without murmur. Abdomen: Soft with normal bowel sounds. There is tenderness in the left lower quadrant and suprapubic area. No guarding, rigidity, rebound. No CVA tenderness. Extremities: No cyanosis or edema. Good distal pulses. Skin: No abnormalities noted of the exposed skin. Neurologic: Awake, alert, fully oriented. Neurologic exam is nonfocal. Const: Vital Signs, click to edit/add: Vital Signs - 24 hr 04/02/25 00:39 04/02/25 02:40 Temperature 98.0 F 98.3 F Pulse Rate [Pulse Oximeter] 99 76 Respiratory Rate 16 16 Blood Pressure [Ri ght Upper Arm] 141/76 H 128/69 Pulse Oximetry 92 96 Oxygen Delivery Me thod Room Air Room Air Course Course ED Course: Patient seen and examined. Labs are ordered. Her pain is currently mild. Reevaluation(s) Reevaluation #1: Similar to her episode one year ago her labs have come back very abnormal. Her CBC is unremarkable. Her basic metabolic panel is normal. Her LFTs show an AST of 203 and an ALT of 111. Last year these values were over 1000. Her lipase is 27,071. Despite that she has no epigastric tenderness. This is also similar to one year ago. We discussed that even though everything went well year ago we should proceed with a CT scan of her abdomen and pelvis further evaluation. She declines and just wants to be discharged. It appears that she never followed up in the clinic after last year's episode. Labs were ordered but never run. I did agree to treat her with Augmentin for a week and asked her to sign AMA. My recommendation is to proceed with a CT scan of her abdomen and pelvis with IV contrast and potentially admission due to that dramatically elevated lipase. She declines at sites out against medical advice. Hopefully she will least follow-up in the clinic to have labs rechecked in a few days. I did ask her to return to the emergency department if she has any worsening pain or other symptoms. I have no clear explanation for why her LFTs and lipase are so elevated. Vital Signs Vital signs: Initial Vital Signs Temperature 98.0 F 04/02/25 00:39 Temperature Source Temporal Artery Scan 04/02/25 00:39 Pulse Rate 99 04/02/25 00:39 Respiratory Rate 16 04/02/25 00:39 Blood Pressure 141/76 H 04/02/25 00:39 Blood Pressure Mean 97 04/02/25 00:39 Pulse Oximetry 92 04/02/25 00:39 Oxygen Delivery Method Room Air 04/02/25 00:39 Vital Signs Temperature 98.0 F 04/02/25 00:39 Pulse Rate 99 04/02/25 00:39 Respiratory Rate 16 04/02/25 00:39 Blood Pressure 141/76 H 04/02/25 00:39 Pulse Oximetry 92 04/02/25 00:39 Oxygen Delivery Method Room Air 04/02/25 00:39 Temperature 98.3 F 04/02/25 02:40 Pulse Rate 76 04/02/25 02:40 Respiratory Rate 16 04/02/25 02:40 Blood Pressure 128/69 04/02/25 02:40 Pulse Oximetry 96 04/02/25 02:40 Oxygen Delivery Method Room Air 04/02/25 02:40 MDM - Abdominal Pain Lab Data Labs: Lab Results 04/02/25 Range/Units 01:10 WBC 8.56 (4.50-11.00) K/uL RBC 4.12 (4.00-5.20) m/uL Hgb 12.8 (12.0-16.0) gm/dL Hct 39.1 (33.0-51.0) % MCV 95 (80-100) fL MCH 31 (26-34) pg MCHC 33 (32-36) gm/dL RDW Coeff of Jimmie 12.4 (11.5-15.5) % Plt Count 586 H (140-440) K/uL Neut % (Auto) 73.7 H (42.0-72.0) % Lymph % (Auto) 17.4 L (20-44) % Tucker % (Auto) 8.3 (0.0-11.0) % Eos % (Auto) 0.4 (0.0-7.0) % Baso % (Auto) 0.1 (0.0-3.0) % Neut # (Auto) 6.30 (1.7-7.0) K/uL Lymph # (Auto) 1.50 (0.90-2.90) K/uL Tucker # (Auto) 0.70 (0.00-0.90) K/UL Eos # (Auto) 0.03 (0.00-0.50) K/uL Baso # (Auto) 0.01 (0.00-0.30) K/uL Abs Immat Gran (auto) 0.01 (0.00-0.30) K/uL Imm/Tot Granulo (auto) 0.1 % Sodium 138 (135-149) mmol/L Potassium 4.0 (3.6-5.1) mmol/L Chloride 101 (96-114) mmol/L Carbon Dioxide 27 (20-32) mmol/L Anion Gap 10 (7-15) mEq/L BUN 17 (7-30) mg/dL Creatinine 0.9 (0.5-1.5) mg/dL Estimated Creat Clear 45.76 Estimated GFR 68 ml/min Glucose 138 H (60-115) mg/dL Calcium 9.1 (8.4-10.6) mg/dL Total Bilirubin 0.8 (0.1-1.5) mg/dL Direct Bilirubin 0.4 (0.0-0.5) mg/dL AST 203 H (12-35) U/L ALT 111 H (4-35) U/L Alkaline Phosphatase 116 (40-150) U/L Total Protein 7.1 (6.0-8.3) g/dL Albumin 4.2 (3.3-5.0) g/dL Lipase 54766 H (23-300) U/L Discharge Plan Discharge Clinical Impression: Diverticulitis, Elevated lipase, Elevated liver function tests Patient Disposition: Left Against Medical Advice Condition: Stable Additional Instructions: [place] diet, push fluids, Tylenol for pain, rest. Follow up in clinic for a recheck and labs in 3 days. Return to ED for worsening pain. Prescriptions: New amoxicillin-pot clavulanate 875-125 mg tablet 1 tab PO BID Qty: 14 0RF Follow Up/Referrals: Provider,Not a Local [Primary Care Provider, Family Practice] Stand Alone Forms: Snapchatth Info Instructions
[2025-04-02 01:37] LABS: Albumin* 4.2 g/dL (3.3-5.0); Chloride* 101 mmol/L (96-114); Potassium* 4.0 mmol/L (3.6-5.1); Sodium* 138 mmol/L (135-149)
[2025-04-02 01:39] LABS: Blood Urea Nitrogen* 17 mg/dL (7-30); Creatinine* 0.9 mg/dL (0.5-1.5); Est. Creatinine Clearance* 45.76; Estimated Glomerular Filt Rate 68 ml/min
[2025-04-02 01:40] LABS: Alanine Aminotransferase* 111 U/L (4-35); Alkaline Phosphatase* 116 U/L (40-150); Anion Gap 10 mEq/L (7-15); Aspartate Amino Transferase* 203 U/L (12-35); Bilirubin Direct* 0.4 mg/dL (0.0-0.5); Bilirubin Total* 0.8 mg/dL (0.1-1.5); Calcium* 9.1 mg/dL (8.4-10.6); Carbon Dioxide* 27 mmol/L (20-32); Glucose* 138 mg/dL (60-115); Total Protein* 7.1 g/dL (6.0-8.3)
[2025-04-02 02:40] VITALS: BP 128/69; PULSE 76; RESP 16; TEMP 36.8; O2SAT 96
== END 2025-04-02 02:56 | disposition left against medical advice (07) ==
PROVIDERS: Emergency Provider Family Medicine
DX: K57.32 Diverticulitis of large intestine without perforation or abscess without bleeding (principal); R94.5 Abnormal results of liver function studies; R74.8 Abnormal levels of other serum enzymes; Z53.29 Procedure and treatment not carried out because of patient's decision for other reasons
CPT/HCPCS: 36415; 80048; 80076; 83690; 85025; 99283; 99284